=== PATIENT | male | born 1995 | race Caucasian/White ===

== ENCOUNTER → 2017-10-24 | Outpatient (CLI) | payer MEDICAID ==
[2017-10-24 12:46] LABS: ANION GAP 8 MEQ/L (8-16); BLOOD UREA NITROGEN 11 MG/DL (7-18); CALCIUM LEVEL 9.3 MG/DL (8.5-10.1); CARBON DIOXIDE LEVEL 29 MEQ/L (21-32); CHLORIDE LEVEL 107 MEQ/L (98-107); CREATININE FOR GFR 0.95 MG/DL (0.70-1.30); GLOMERULAR FILTRATION RATE > 60.0 (>60); GLUCOSE, FASTING 94 MG/DL (70-100); POTASSIUM SERUM 4.1 MEQ/L (3.5-5.1); SODIUM LEVEL 144 MEQ/L (136-145)
== END ==
LOC: M WUC 10:00
DX: E66.9 Obesity, unspecified (principal); F90.0 Attention-deficit hyperactivity disorder, predominantly inattentive type
CPT/HCPCS: 80048

== ENCOUNTER → 2018-11-27 | Outpatient (CLI) | payer OTHER, MEDICAID ==
[~2018-11-27] MED LIST: PANT40TA3 PO; ZOFR8TAB24 PO
[2018-11-27 13:02] LABS: BASO # 0.1 10^3/uL (0.0-0.2); BASO % 0.7 % (0.0-1.0); EOS # 0.5 10^3/uL (0.0-0.5); EOS % 5.7 % (0.0-3.0); HEMATOCRIT 49.8 % (42.0-52.0); HEMOGLOBIN 16.8 g/dl (13.5-17.5); LYMPH # 2.4 10^3/uL (1.5-5.0); LYMPH % 26.7 % (24.0-44.0); MEAN CORPUSCULAR HGB CONC 33.7 g/dl (32.0-36.5); MEAN CORPUSCULAR VOLUME 91.9 fl (80.0-96.0); MONO # 0.8 10^3/uL (0.0-0.8); MONO % 8.3 % (0.0-5.0); NEUTROPHILS # 5.3 10^3/uL (1.5-8.5); NEUTROPHILS % 57.8 % (36.0-66.0); PLATELET COUNT, AUTOMATED 190 10^3/uL (150-450); RED BLOOD COUNT 5.42 10^6/uL (4.30-6.10); WHITE BLOOD COUNT 9.1 10^3/uL (4.0-10.0)
[2018-11-27 13:08] LABS: ALBUMIN 4.2 GM/DL (3.2-5.2); ALT/SGPT 38 U/L (12-78); BILIRUBIN,TOTAL 0.6 MG/DL (0.2-1.0); BLOOD UREA NITROGEN 13 MG/DL (7-18); CALCIUM LEVEL 9.4 MG/DL (8.5-10.1); CARBON DIOXIDE LEVEL 28 MEQ/L (21-32); CHLORIDE LEVEL 106 MEQ/L (98-107); CREATININE FOR GFR 1.06 MG/DL (0.70-1.30); GLOMERULAR FILTRATION RATE > 60.0 (>60); GLUCOSE, FASTING 96 MG/DL (70-100); POTASSIUM SERUM 4.3 MEQ/L (3.5-5.1); SODIUM LEVEL 140 MEQ/L (136-145); TOTAL PROTEIN 7.7 GM/DL (6.4-8.2)
== END ==
LOC: M WUC 08:40
PROVIDERS: ATTEND Physician Assistant
DX: K21.9 Gastro-esophageal reflux disease without esophagitis (principal); F90.0 Attention-deficit hyperactivity disorder, predominantly inattentive type; F84.5 Asperger's syndrome

== ENCOUNTER 2019-04-11 17:08 | Emergency (ER) | payer OTHER, MEDICAID ==
[~2019-04-11] VITALS: Ht 182.9 cm; Wt 124.7 kg
[2019-04-11] MEDS ORDERED: PANT40TA3 PO (17:17)
[2019-04-11 18:22] LABS: BASO # 0.1 10^3/uL (0.0-0.2); BASO % 0.6 % (0.0-1.0); EOS # 0.2 10^3/uL (0.0-0.5); EOS % 0.7 % (0.0-3.0); LYMPH # 0.8 10^3/uL (1.5-5.0); LYMPH % 3.5 % (24.0-44.0); MEAN CORPUSCULAR HEMOGLOBIN 29.6 pg (27.0-33.0); MEAN CORPUSCULAR HGB CONC 32.5 g/dl (32.0-36.5); MEAN CORPUSCULAR VOLUME 90.9 fl (80.0-96.0); MONO # 1.1 10^3/uL (0.0-0.8); MONO % 5.2 % (0.0-5.0); NEUTROPHILS # 19.2 10^3/uL (1.5-8.5); NEUTROPHILS % 88.9 % (36.0-66.0); PLATELET COUNT, AUTOMATED 214 10^3/uL (150-450); RED BLOOD COUNT 6.26 10^6/uL (4.30-6.10)
[2019-04-11 18:24] LABS: HEMATOCRIT 56.9 % (42.0-52.0); HEMOGLOBIN 18.5 g/dl (13.5-17.5); WHITE BLOOD COUNT 21.6 10^3/uL (4.0-10.0)
[2019-04-11 18:50] LABS: ALBUMIN 4.9 GM/DL (3.2-5.2); ALT/SGPT 72 U/L (12-78); BILIRUBIN,DIRECT 0.3 MG/DL (0.0-0.2); BILIRUBIN,TOTAL 0.9 MG/DL (0.2-1.0); BLOOD UREA NITROGEN 13 MG/DL (7-18); CARBON DIOXIDE LEVEL 26 MEQ/L (21-32); CHLORIDE LEVEL 105 MEQ/L (98-107); CREATININE FOR GFR 1.26 MG/DL (0.70-1.30); GLOMERULAR FILTRATION RATE > 60.0 (>60); GLUCOSE, FASTING 102 MG/DL (70-100); LIPASE 92 U/L (73-393); POTASSIUM SERUM 4.1 MEQ/L (3.5-5.1); SODIUM LEVEL 138 MEQ/L (136-145); TOTAL PROTEIN 9.4 GM/DL (6.4-8.2)
[2019-04-11] MEDS ORDERED: NS 1,000 ML IV ONE ×2 (19:30→22:00)
[2019-04-11 20:06] LABS: INFLUENZA A AMPLIFICATION NEGATIVE (NEGATIVE); INFLUENZA B AMPLIFICATION NEGATIVE (NEGATIVE)
[2019-04-11] MEDS ORDERED: ISOVUE-370 76% 100ML VIAL (Q9967) As Ordered ONE (20:15)
--- NOTE | 2019-04-11 21:41 | REPVR ---
PROCEDURE INFORMATION: Exam: CT Abdomen And Pelvis With Contrast Exam date and time: 04/11/2019 8:20 PM Age: 23 years old Clinical indication: Abdominal pain; Generalized; Additional info: Diffuse abdominal pain TECHNIQUE: Imaging protocol: Computed tomography of the abdomen and pelvis with intravenous contrast. Radiation optimization: All CT scans at this facility use at least one of these dose optimization techniques: automated exposure control; mA and/or kV adjustment per patient size (includes targeted exams where dose is matched to clinical indication); or iterative reconstruction. Contrast material: ISOVUE 370; Contrast volume: 100 ml; Contrast route: IV; COMPARISON: No relevant prior studies available. FINDINGS: Lungs: The visualized lung bases demonstrate mild dependent atelectasis. Mediastinum: There is a small hiatal hernia. Liver: The liver is mildly fatty in density. It appears otherwise unremarkable. Gallbladder and bile ducts: No gallstones are evident, but ultrasound would be more sensitive. No gross biliary ductal dilatation. Pancreas: Normal. No ductal dilation. Spleen: Normal. No splenomegaly. Adrenals: Normal. No mass. Kidneys and ureters: Normal. No hydronephrosis. Stomach and bowel: The unopacified small bowel is not significantly distended to suggest obstruction. There may be wall thickening of some left-sided small bowel loops, as well as portions of the transverse, descending and sigmoid colon. The large bowel is otherwise grossly unremarkable in appearance. Appendix: The appendix appears normal. Intraperitoneal space: No free air or significant free fluid. Vasculature: Unremarkable. No abdominal aortic aneurysm. Lymph nodes: There are some prominent but subcentimeter short axis mesenteric lymph nodes, predominantly on the left. No pathologic retroperitoneal lymphadenopathy is identified. Bladder: Grossly unremarkable. Reproductive: Unremarkable as visualized. Bones/joints: Unremarkable. No acute fracture. Soft tissues: Small fat-containing umbilical and bilateral inguinal hernias are present. IMPRESSION: 1. Potential wall thickening of some left-sided small bowel loops and portions of the transverse, descending and sigmoid colon. Correlate as to possible nonspecific enterocolitis. 2. Prominent but subcentimeter short axis mesenteric lymph nodes, predominantly on the left, of uncertain significance, could be reactive or related to adenitis. 3. Mildly fatty liver. 4. Small hiatal hernia. 5. Small fat-containing umbilical and bilateral inguinal hernias. Electronically signed by: Miguel Quezada On 04/11/2019 21:41:04 PM
[2019-04-11 21:58] LABS: BASO # 0.1 10^3/uL (0.0-0.2); BASO % 0.5 % (0.0-1.0); EOS % 0.2 % (0.0-3.0); LYMPH # 0.4 10^3/uL (1.5-5.0); MEAN CORPUSCULAR HEMOGLOBIN 29.6 pg (27.0-33.0); MEAN CORPUSCULAR HGB CONC 32.5 g/dl (32.0-36.5); MEAN CORPUSCULAR VOLUME 90.9 fl (80.0-96.0); MONO # 0.7 10^3/uL (0.0-0.8); MONO % 3.9 % (0.0-5.0); NEUTROPHILS # 16.1 10^3/uL (1.5-8.5); PLATELET COUNT, AUTOMATED 194 10^3/uL (150-450); RED BLOOD COUNT 5.95 10^6/uL (4.30-6.10)
[2019-04-11 22:01] LABS: HEMOGLOBIN 17.6 g/dl (13.5-17.5)
[2019-04-11 22:02] LABS: HEMATOCRIT 54.1 % (42.0-52.0); LYMPH % 2.2 % (24.0-44.0); NEUTROPHILS % 92.2 % (36.0-66.0); WHITE BLOOD COUNT 17.4 10^3/uL (4.0-10.0)
[2019-04-11] MEDS ORDERED: ZOFR8TAB24 PO (23:54)
[2019-04-12 00:13] VITALS: BP 129/60
== END 2019-04-12 00:19 | disposition home or self-care (01) ==
LOC: M ED 17:08
DX: A08.11 Acute gastroenteropathy due to Norwalk agent (principal); K21.9 Gastro-esophageal reflux disease without esophagitis; Z86.79 Personal history of other diseases of the circulatory system; K76.0 Fatty (change of) liver, not elsewhere classified; K44.9 Diaphragmatic hernia without obstruction or gangrene; K40.90 Unilateral inguinal hernia, without obstruction or gangrene, not specified as recurrent; K42.9 Umbilical hernia without obstruction or gangrene; Z79.899 Other long term (current) drug therapy
CPT/HCPCS: 74177; 80048; 80076; 81001; 83605; 83690; 85025; 87502; 87507; 96360; 96361; 99284; Q9967

== ENCOUNTER → 2019-08-22 | Outpatient (CLI) | payer OTHER, MEDICAID ==
--- NOTE | 2019-08-23 02:36 | REP ---
Clinical: Trauma. Technique: AP, lateral, bilateral oblique views left foot . Findings: Oblique views best demonstrate an irregular appearance of the metatarsal head at the MTP joint which is highly suspicious for acute fracture. Remainder of the examination appears normal. Impression: Acute fracture at the head of the fourth metatarsal bone. Electronically Signed by Barak Gracia MD 08/23/2019 02:27 A
== END ==
LOC: M WUC 10:24
PROVIDERS: ATTEND Nurse Practitioner Family
DX: S92.342A Displaced fracture of fourth metatarsal bone, left foot, initial encounter for closed fracture (principal); X58.XXXA Exposure to other specified factors, initial encounter; Y92.9 Unspecified place or not applicable

== ENCOUNTER → 2019-09-02 | Outpatient (CLI) | payer OTHER, MEDICAID ==
[~2019-09-02] MED LIST changes: +OMEP-218 PO
== END ==
LOC: M LABSMTC 11:20
PROVIDERS: ATTEND Anesthesiology
DX: Z03.818 Encounter for observation for suspected exposure to other biological agents ruled out (principal); Z11.59 Encounter for screening for other viral diseases
CPT/HCPCS: C9803; U0003

== ENCOUNTER 2019-09-05 05:55 | Day surgery (SDC) | payer MEDICAID, OTHER ==
[~2019-09-05] VITALS: Ht 185.4 cm; Wt 130.1 kg
[2019-09-05] MEDS ORDERED: dexameTHASONE 10MG/1ML VIAL PRES.FREE (J1100 PER 1MG) ONE (05:56)
[2019-09-05] MEDS ORDERED: LIDOCAINE 1% MDV 20ML VIAL ONE (05:56)
[2019-09-05] MEDS ORDERED: ROPIvacaine 0.5% 30ML INJECTION (J2795 PER 1MG) ONE (05:56)
[2019-09-05] MEDS ORDERED: ceFAZolin SOD 2 GM in IV 1 EA IV ONE (06:00)
[2019-09-05] MEDS ORDERED: LR 1,000 ML IV ONE (06:00)
[2019-09-05] MEDS ORDERED: fentaNYL 100 MCG/2 ML INJECTION (J3010) As Ordered ONE ×2 (07:17→07:46)
[2019-09-05] MEDS ORDERED: MIDAZOLAM INJ 2MG/2ML VIAL (J2250 PER 1MG) As Ordered ONE ×2 (07:17→07:46)
[2019-09-05] MEDS ORDERED: MIDAZOLAM INJ 2MG/2ML VIAL (J2250 PER 1MG) IV ONE (07:45)
[2019-09-05] MEDS ORDERED: fentaNYL 100 MCG/2 ML INJECTION (J3010) IV ONE (07:45)
[2019-09-05] MEDS ORDERED: ROCURONIUM BROMIDE 50 MG/5 ML VIAL As Ordered ONE (07:46)
[2019-09-05] MEDS ORDERED: dexameTHASONE 4 MG/ML 1ML VIAL (J1100 PER 1MG) As Ordered ONE (07:46)
[2019-09-05] MEDS ORDERED: propofoL 200 MG/20 ML VIAL As Ordered ONE ×2 (07:46→08:35)
[2019-09-05] MEDS ORDERED: ACETAMINOPHEN 1000MG 100ML IV BTL (OFIRMEV) (J0131 PER 10MG) As Ordered ONE (07:46)
[2019-09-05] MEDS ORDERED: LIDOCAINE 2% 100MG/5ML SDV (FOR ANES.) As Ordered ONE (07:46)
[2019-09-05] MEDS ORDERED: METOCLOPRAMIDE INJ 10MG/2ML VIAL (J2765 PER 1) As Ordered ONE (07:46)
[2019-09-05] MEDS ORDERED: SUGAMMADEX SODIUM 500 MG/5 ML VIAL (BRIDION) As Ordered ONE (07:46)
[2019-09-05] MEDS ORDERED: ONDANSETRON 4MG/2ML VIAL As Ordered ONE (07:46)
[2019-09-05] MEDS ORDERED: KETOROLAC 60 MG/2 ML VIAL As Ordered ONE (08:37)
[2019-09-05] MEDS ORDERED: ONDANSETRON 4MG/2ML VIAL IV PRN (09:30)
[2019-09-05] MEDS ORDERED: HYDROMORPHONE HCL 0.5 MG/ 0.5 ML SYRINGE (J1170 PER 1) IV PRN (09:30)
[2019-09-05] MEDS ORDERED: fentaNYL 100 MCG/2 ML INJECTION (J3010) IV PRN (09:30)
[2019-09-05] MEDS ORDERED: oxyCODONE 5MG TAB PO PRN (09:30)
[2019-09-05] MEDS ORDERED: LR 1,000 ML IV SCH ×2 (09:30)
--- NOTE | 2019-09-05 09:43 | REP ---
C-ARM VIEWS, LEFT FOOT: Multiple C-arm views left foot performed during placement of a pin in the 4th metatarsal. 31 seconds of fluoroscopy time utilized. Osseous structures are well aligned. Electronically Signed by Cristobal Frazier MD 09/06/2019 10:27 A
[2019-09-05 11:10] VITALS: BP 126/61
--- NOTE | 2019-09-08 14:04 | RO ---
DATE OF PROCEDURE: 09/05/2019 PREPROCEDURE DIAGNOSIS: Left displaced 4th metatarsal head fracture. POSTPROCEDURE DIAGNOSIS: Left displaced 4th metatarsal head fracture. PROCEDURE: 1. Open reduction, internal fixation left 4th metatarsal head fracture. 2. Use of C-arm. SURGEON: Zena Gomez MD OPERATIONS SUPERVISOR [employer] CLEANING: MICK Duff ANESTHESIA: ESTIMATED BLOOD LOSS: 10 mL. IMPLANTS: A single 0.062 K-wire. COMPLICATIONS: None. CONDITION: Stable to recovery. INDICATIONS: Benitez Rock is a 24-year-old male who sustained a displaced 4th metatarsal head fracture. Risks and benefits of surgery were discussed with the patient in detail and he elected with surgical management. Risks include, but are not limited to, infection, damage to nerves and blood vessels, continued pain and stiffness, need for additional procedures. Informed consent had been obtained in the office. DESCRIPTION OF PROCEDURE: The patient was met in the preoperative holding area where his left lower extremity was marked as the correct operative site. He underwent a nerve block by the anesthesia team. He was taken to the operating room and placed in the supine position on the operating room table. Bony prominences were well padded. He received antibiotics within 60 minutes prior to incision. The left lower extremity was prepped and draped in the normal sterile fashion. An official time-out was held where the correct patient, operative side and operative procedure were verified. A hockey stick type incision was made over the 4th metatarsophalangeal joint. The extensor tendon to the 4th toe was identified and retracted laterally. Capsule was incised and immediately evident was almost the entire articular surface of the 4th metatarsal head. The fracture site was cleaned of hematoma and debris. The fracture was then reduced placing the cartilage back into the 4th metatarsophalangeal joint. There was good articulation and range of motion with the toe at this point. The fracture was essentially almost entirely through the cartilage and thus, was unable to place any sort of screw. I did place a 0.062 K-wire plantarly through the metatarsal head to keep it in place. Following this copious irrigation was performed. Soft tissues were closed using #3-0 Vicryl and the skin was closed using #3-0 nylon. Pin was cut and secured. The patient was placed with a sterile dressing and well-padded splint. He was extubated and transferred to the recovery room in stable condition. PLAN: The patient will be non-weightbearing on the left lower extremity. He will be seen in seen in 2 weeks for suture removal. He will be on aspirin for deep vein thrombosis (DVT) prophylaxis.
== END 2019-09-05 12:16 | disposition home or self-care (01) ==
LOC: M SDC 05:55
PROVIDERS: ATTEND Orthopaedic Surgery
DX: S92.342A Displaced fracture of fourth metatarsal bone, left foot, initial encounter for closed fracture (principal); X58.XXXA Exposure to other specified factors, initial encounter; Y92.89 Other specified places as the place of occurrence of the external cause; Y93.9 Activity, unspecified; Y99.9 Unspecified external cause status; K21.9 Gastro-esophageal reflux disease without esophagitis; F84.5 Asperger's syndrome; Z79.899 Other long term (current) drug therapy
CPT/HCPCS: 28485; 64445; 76000; 97116; J0131; J1100; J1885; J2250; J2405; J2765; J2795; J3010

== ENCOUNTER 2019-11-20 08:21 | Outpatient (RCR) | payer OTHER ==
[~2019-11-20 08:21] MED LIST changes: +PANT40TA29 PO; -PANT40TA3 PO
== END 2019-11-26 | disposition home or self-care (01) ==
LOC: M PT 08:21
PROVIDERS: ATTEND Orthopaedic Surgery
DX: S92.342D Displaced fracture of fourth metatarsal bone, left foot, subsequent encounter for fracture with routine healing (principal); W18.30XD Fall on same level, unspecified, subsequent encounter; Y92.9 Unspecified place or not applicable

== ENCOUNTER 2019-11-27 08:58 | Outpatient (RCR) | payer OTHER | END 2019-12-26 | LOC: M PT 08:58 | PROVIDERS: ATTEND Orthopaedic Surgery | DX: S92.342D Displaced fracture of fourth metatarsal bone, left foot, subsequent encounter for fracture with routine healing (principal); W18.30XD Fall on same level, unspecified, subsequent encounter; Y92.9 Unspecified place or not applicable ==

== ENCOUNTER → 2023-12-15 | Outpatient (CLI) | payer MEDICAID ==
[~2023-12-15] MED LIST changes: +OMEP-173 PO; -OMEP-218 PO
== END ==
LOC: M PLARAD 09:02
PROVIDERS: ATTEND Physician Assistant
DX: S82.115A Nondisplaced fracture of left tibial spine, initial encounter for closed fracture (principal); M25.462 Effusion, left knee; S83.512A Sprain of anterior cruciate ligament of left knee, initial encounter; X58.XXXA Exposure to other specified factors, initial encounter; Y92.9 Unspecified place or not applicable; Y93.9 Activity, unspecified; Y99.9 Unspecified external cause status

== ENCOUNTER 2024-01-18 09:09 | Outpatient (RCR) | payer MEDICAID | END 2024-01-26 | LOC: M PT 09:09 | PROVIDERS: ATTEND Orthopaedic Surgery | DX: M25.562 Pain in left knee (principal) ==

== ENCOUNTER 2024-02-22 14:19 | Outpatient (RCR) | payer MEDICAID | END 2024-02-25 | LOC: M PT 14:19 | PROVIDERS: ATTEND Orthopaedic Surgery | DX: M25.562 Pain in left knee (principal) ==

== ENCOUNTER → 2024-03-27 | Outpatient (RCR) | payer MEDICAID | LOC: M PT 02-29 09:03 | PROVIDERS: ATTEND Orthopaedic Surgery | DX: M25.562 Pain in left knee (principal) ==

== ENCOUNTER 2024-04-12 10:00 | Outpatient (RCR) | payer MEDICAID | END 2024-04-27 | LOC: M PT 10:00 | PROVIDERS: ATTEND Orthopaedic Surgery | DX: M25.562 Pain in left knee (principal) ==